=== PATIENT | male | born 1955 | race Caucasian/White ===

== ENCOUNTER 2016-09-30 13:19 | Emergency (ER) | payer OTHER ==
[2016-09-30 14:23] LABS: HEMOGLOBIN 16.1 gm/dl (14.0-17.5); RED BLOOD COUNT 5.17 M/UL (4.20-5.50); WHITE BLOOD COUNT 6.2 K/UL (4.5-11.0)
[2016-09-30 14:47] LABS: BUN/CREATININE RATIO 16 (0-10)
== END 2016-09-30 18:08 | disposition home or self-care (01) ==
LOC: ER1 13:19
PROVIDERS: Emergency Medicine
DX: J40 Bronchitis, not specified as acute or chronic (principal); E87.1 Hypo-osmolality and hyponatremia; I10 Essential (primary) hypertension; Z96.643 Presence of artificial hip joint, bilateral; Z79.899 Other long term (current) drug therapy; Z88.1 Allergy status to other antibiotic agents; Z88.5 Allergy status to narcotic agent
CPT/HCPCS: 36415; 71020; 80053; 83880; 84484; 85025; 85379; 94664; 96360; 96361; 99285

== ENCOUNTER → 2020-08-18 | Outpatient (CLI) | payer OTHER ==
[~2020-08-18] MED LIST: ASPIRIN CHEWABL81 MG PO; ASPIRIN EC81 MG PO; CLARITIN10 MG PO; CYANOCOBALAMIN PO; KENALOG OINT 0.15 GM TOP; LISINOPRIL20 MG PO; LUMIGAN 0.01%2.5 ML EYEBOTH; LUMIGAN 0.01%2.5 ML OP; MELOXICAM7.5 MG PO; PRINIVIL20 MG PO; TIZANIDINE HCL2 MG PO; TYLENOL 500 MG500 MG PO; VIT D-3 PO; VITAMIN B-121000 MCG PO; VITAMIN D31000 UNI1 PO; ZANAFLEX4 MG PO
[2020-08-18 12:06] LABS: HEMOGLOBIN 17.4 gm/dl (14.0-17.5); RED BLOOD COUNT 5.59 M/UL (4.20-5.50); WHITE BLOOD COUNT 7.5 K/UL (4.5-11.0)
[2020-08-18 12:40] LABS: BUN/CREATININE RATIO 24 (0-10)
== END ==
LOC: LAB 11:01
PROVIDERS: Family Medicine
DX: E55.9 Vitamin D deficiency, unspecified (principal); I10 Essential (primary) hypertension; E53.8 Deficiency of other specified B group vitamins; R31.29 Other microscopic hematuria
CPT/HCPCS: 36415; 80053; 80061; 81001; 82607; 85027; 87086

== ENCOUNTER → 2020-12-31 | Outpatient (CLI) | payer OTHER ==
[2020-12-31 14:10] LABS: BUN/CREATININE RATIO 23 (0-10)
== END ==
LOC: LAB 13:22
PROVIDERS: Family Medicine
DX: Z12.5 Encounter for screening for malignant neoplasm of prostate (principal); E53.8 Deficiency of other specified B group vitamins; E55.9 Vitamin D deficiency, unspecified; I10 Essential (primary) hypertension; N40.0 Benign prostatic hyperplasia without lower urinary tract symptoms
CPT/HCPCS: 36415; 80053; 82607; 84153

== ENCOUNTER → 2021-03-17 | Outpatient (CLI) | payer OTHER | LOC: RAD 09:40 | DX: R13.10 Dysphagia, unspecified (principal); K44.9 Diaphragmatic hernia without obstruction or gangrene; K22.5 Diverticulum of esophagus, acquired | CPT/HCPCS: 74220 ==

== ENCOUNTER → 2021-04-01 | Outpatient (CLI) | payer MEDICARE, OTHER ==
[2021-04-01 13:46] LABS: HEMOGLOBIN 16.2 gm/dl (14.0-17.5); RED BLOOD COUNT 5.47 M/UL (4.20-5.50); WHITE BLOOD COUNT 8.9 K/UL (4.5-11.0)
== END ==
LOC: RAD 13:05
PROVIDERS: Family Medicine
DX: M10.9 Gout, unspecified (principal)
CPT/HCPCS: 36415; 73630; 84550; 85027

== ENCOUNTER → 2022-01-05 | Outpatient (CLI) | payer MEDICARE, OTHER | LOC: RAD 11:07 | DX: M51.34 Other intervertebral disc degeneration, thoracic region (principal) | CPT/HCPCS: 72072 ==